=== PATIENT | female | born 1980 | race American Indian/Alaskan Native ===

== ENCOUNTER 2019-10-11 04:00 | Emergency (ER) | payer OTHER ==
[2019-10-11] MEDS ORDERED: IBUPROFEN 800 MG TAB PO ONE (04:18)
[2019-10-11] MEDS ORDERED: PENICILLIN G BENZATHINE 1.2 MILLION UNIT/2 ML INJ IM ONE (04:18)
[2019-10-11] MEDS ORDERED: dexAMETHasone 20 MG/5 ML VIAL IM ONE (04:18)
--- NOTE | 2019-10-11 04:37 | Emergency Department Report ---
ED ENT HPI - General Chief complaint: Sore Throat Stated complaint: TONSIL PAIN Time Seen by Provider: 10/11/19 04:18 Source: patient Mode of arrival: Ambulatory Limitations: No Limitations - History of Present Illness Initial comments: Ms Bailey is s 39 y/o aaf with hx of tonsilitis recurrent, who presents for sore throat x 2 days. pt sates 3/10 pain sharp burning with swallowing, pt denies fever or chills no n/v no neck or ear pain. There is no cough, wheezing, or stridor. MD complaint: sore throat Onset/Timin -: days(s) Location: throat Severity: moderate Severity scale (0 -10): 5 Quality: burning Consistency: constant Improves with: NSAID Worsens with: swallowing Associated Symptoms: pain with swallowing, sore throat - Related Data Previous Rx's Medication Instructions Recorded Last Taken Type HYDROcodone/APAP 5-325 [Cypress 1 each PO Q6HR PRN #14 tablet 09/08/14 Unknown Rx 5/325] Penicillin Vk [Veetids TAB] 500 mg PO QID 7 Days tablet 09/08/14 Unknown Rx Promethazine [Phenergan] 25 mg PO Q6H PRN #14 tablet 09/08/14 Unknown Rx Benzocaine/Menthol [Cepacol Sore 1 each MM Q2H PRN #24 lozenge 10/11/19 Unknown Rx Throat Lozenge] Ibuprofen [Motrin 800 MG tab] 800 mg PO Q8HR PRN #30 tablet 10/11/19 Unknown Rx dexAMETHasone [Decadron] 4 mg PO BID 3 Days #6 tablet 10/11/19 Unknown Rx Allergies Allergy/AdvReac Type Severity Reaction Status Date / Time No Known Allergies Allergy Unverified 10/11/19 04:24 ED Dental HPI - General Chief complaint: Sore Throat Stated complaint: TONSIL PAIN Time Seen by Provider: 10/11/19 04:18 Source: patient Mode of arrival: Ambulatory Limitations: No Limitations - Related Data Previous Rx's Medication Instructions Recorded Last Taken Type HYDROcodone/APAP 5-325 [[place]ress 1 each PO Q6HR PRN #14 tablet 09/08/14 Unknown Rx 5/325] Penicillin Vk [Veetids TAB] 500 mg PO QID 7 Days tablet 09/08/14 Unknown Rx Promethazine [Phenergan] 25 mg PO Q6H PRN #14 tablet 09/08/14 Unknown Rx Benzocaine/Menthol [Cepacol Sore 1 each MM Q2H PRN #24 lozenge 10/11/19 Unknown Rx Throat Lozenge] Ibuprofen [Motrin 800 MG tab] 800 mg PO Q8HR PRN #30 tablet 10/11/19 Unknown Rx dexAMETHasone [Decadron] 4 mg PO BID 3 Days #6 tablet 10/11/19 Unknown Rx Allergies Allergy/AdvReac Type Severity Reaction Status Date / Time No Known Allergies Allergy Unverified 10/11/19 04:24 ED Review of Systems ROS: Stated complaint: TONSIL PAIN Other details as noted in HPI Constitutional: denies: chills, fever Eyes: denies: eye pain, eye discharge, vision change ENT: throat pain. denies: ear pain Respiratory: denies: cough, shortness of breath, wheezing Cardiovascular: denies: chest pain, palpitations Endocrine: no symptoms reported Gastrointestinal: denies: abdominal pain, nausea, vomiting, diarrhea Genitourinary: denies: urgency, dysuria, discharge Musculoskeletal: denies: back pain, joint swelling, arthralgia Skin: denies: rash, lesions Neurological: denies: headache, weakness, paresthesias Psychiatric: denies: anxiety, depression Hematological/Lymphatic: denies: easy bleeding, easy bruising ED Past Medical Hx - Past Medical History Previous Medical History?: Yes Hx Hypertension: Yes - Surgical History Past Surgical History?: Yes Additional Surgical History: . tubal ligation - Social History Smoking Status: Never Smoker Substance Use Type: None - Medications Home Medications: Home Medications Medication Instructions Recorded Confirmed Last Taken Type HYDROcodone/APAP 5-325 [C[place]ress 1 each PO Q6HR PRN #14 tablet 09/08/14 Unknown Rx 5/325] Penicillin Vk [Veetids TAB] 500 mg PO QID 7 Days tablet 09/08/14 Unknown Rx Promethazine [Phenergan] 25 mg PO Q6H PRN #14 tablet 09/08/14 Unknown Rx Benzocaine/Menthol [Cepacol Sore 1 each MM Q2H PRN #24 lozenge 10/11/19 Unknown Rx Throat Lozenge] Ibuprofen [Motrin 800 MG tab] 800 mg PO Q8HR PRN #30 tablet 10/11/19 Unknown Rx dexAMETHasone [Decadron] 4 mg PO BID 3 Days #6 tablet 10/11/19 Unknown Rx ED Physical Exam - General Limitations: No Limitations General appearance: alert, in no apparent distress - Head Head exam: Present: atraumatic, normocephalic - Eye Eye exam: Present: normal appearance, PERRL, EOMI Pupils: Present: normal accommodation - ENT ENT exam: Present: mucous membranes moist, TM's normal bilaterally, normal external ear exam - Expanded ENT Exam Expanded Ear exam: Present: normal external inspection Throat exam: Positive: tonsillar erythema, tonsillomegaly, tonsillar exudate, other (uvula midline no stridor no peritonsilar abscess airway is patent). Negative: R peritonsillar mass, L peritonsillar mass - Neck Neck exam: Present: full ROM, lymphadenopathy. Absent: tenderness, meningismus, thyromegaly - Expanded Neck Exam Expanded Neck exam: Absent: tenderness, midline deformity, anterior neck swelling, thyroid mass, carotid bruit, tracheal deviation - Respiratory Respiratory exam: Present: normal lung sounds bilaterally. Absent: respiratory distress, wheezes, rales, rhonchi, stridor, chest wall tenderness - Cardiovascular Cardiovascular Exam: Present: regular rate, normal rhythm, normal heart sounds - GI/Abdominal GI/Abdominal exam: Present: soft, normal bowel sounds. Absent: distended, tenderness, bruit, hernia - Rectal Rectal exam: Present: deferred - Extremities Exam Extremities exam: Present: normal inspection, full ROM. Absent: tenderness - Back Exam Back exam: Present: normal inspection, full ROM. Absent: tenderness - Neurological Exam Neurological exam: Present: alert, oriented X3, CN II-XII intact, normal gait - Psychiatric Psychiatric exam: Present: normal affect, normal mood - Skin Skin exam: Present: warm, dry, intact, normal color. Absent: rash ED Course Vital Signs 10/11/19 04:05 Temperature 98.2 F Pulse Rate 78 Respiratory 18 Rate Blood Pressure 172/104 O2 Sat by Pulse 99 Oximetry ED Medical Decision Making - Medical Decision Making symptoms are improved, pt is tolerating po intake without difficulty, lungs are clear bilat all lobes, pharynx: is patent no stridor , no symptoms of peritonsilare abscess, no fever no chills. DX Phayrngitis, plan: decadron, Bicillin, NSAIDS follwo up with ENT in 2 days. Return to ed if symptoms worsen. pt verbalized agreement and understanding of same. Critical care attestation.: If time is entered above; I have spent that time in minutes in the direct care of this critically ill patient, excluding procedure time. ED Disposition Clinical Impression: Pharyngitis Qualifiers: Pharyngitis/tonsillitis etiology: unspecified etiology Qualified Code(s): J02.9 - Acute pharyngitis, unspecified Disposition: TO HOME OR SELFCARE Is pt being admited?: No Does the pt Need Aspirin: No Condition: Stable Instructions: Pharyngitis (ED) Prescriptions: Benzocaine/Menthol [Cepacol Sore Throat Lozenge] 1 each MM Q2H PRN #24 lozenge PRN Reason: Throat Pain dexAMETHasone [Decadron] 4 mg PO BID 3 Days #6 tablet Ibuprofen [Motrin 800 MG tab] 800 mg PO Q8HR PRN #30 tablet PRN Reason: Pain , Severe (7-10) Referrals: JENI HOWELL MD [Staff Physician] - 3-5 Days [facility] [Outside] - 3-5 Days Forms: Work/School Release Form(ED) Time of Disposition: 04:43
[2019-10-11 05:29] VITALS: BP 161/98
== END 2019-10-11 05:26 | disposition home or self-care (01) ==
LOC: ED 04:00
DX: J02.9 Acute pharyngitis, unspecified (principal); I10 Essential (primary) hypertension; Z98.51 Tubal ligation status; Z79.899 Other long term (current) drug therapy
CPT/HCPCS: 96372; 99282; J0561; J1100